=== PATIENT | female | born 1980 | race Caucasian/White ===

== ENCOUNTER 2022-03-06 13:17 | Emergency (ER) | payer OTHER ==
[2022-03-06] MEDS ORDERED: ACETAMINOPHEN INJECTION 100 ML IVPB ONE ×2 (13:20→17:25)
[2022-03-06 13:27] VITALS: BP 143/70; PULSE 62; RESP 16; TEMP 97.7; BMI 26.6
[2022-03-06 13:46] LABS: HEMOGLOBIN 12.3 G/dL (10.7-15.3); MCH 29.7 pg (25.7-33.7); MCHC 35.1 g/dl (32.0-36.0); MEAN CELL VOLUME 84.5 fl (80-96); MEAN PLT VOLUME 8.8 fl (7.5-11.1); PLATELET COUNT 226.3 10^3/uL (134-434); RBC 4.14 10^6/uL (3.60-5.2); RDW 13.5 % (11.6-15.6); WHITE BLOOD COUNT 5.7 10^3/uL (4.0-10.8)
[2022-03-06 13:54] LABS: ALBUMIN 4.1 g/dl (3.4-5.0); BILIRUBIN,TOTAL 0.7 mg/dl (0.2-1); CALCIUM 8.6 mg/dl (8.5-10); CREATININE 0.7 mg/dl (0.55-1.3); TOT PROT 6.5 g/dl (6.4-8.2)
[2022-03-06 14:00] LABS: PLATELET ESTIMATE ADEQUATE
[2022-03-06] MEDS ORDERED: morphine CARPU-JECT 2 MG/1 ML DISP.SYRIN IVPUSH ONE (14:09)
[2022-03-06] MEDS ORDERED: morphine SULFATE 4 MG/ML VIAL ONE (14:13)
[2022-03-06] MEDS ORDERED: KETOROLAC TROMETHAMINE 30 MG/1 ML VIAL ONE (14:26)
[2022-03-06] MEDS ORDERED: KETOROLAC TROMETHAMINE 30 MG/1 ML VIAL IVPUSH ONE (14:26)
[2022-03-06] MEDS ORDERED: ACETAMINOPHEN 1000 MG/100 ML BAG IVPB ONE ×2 (14:36→17:21)
[2022-03-06 14:46] LABS: EPITHELIAL CELLS FEW /hpf
== END 2022-03-06 18:02 | disposition home or self-care (01) ==
LOC: FER 13:17
PROC: 3E0333Z Introduction of Anti-inflammatory into Peripheral Vein, Percutaneous Approach (ICD-10-PCS; principal; 2022-03-06)
PROC: 3E0333Z Introduction of Anti-inflammatory into Peripheral Vein, Percutaneous Approach (ICD-10-PCS; 2022-03-06)
PROC: 3E0333Z Introduction of Anti-inflammatory into Peripheral Vein, Percutaneous Approach (ICD-10-PCS; 2022-03-06)
PROC: 3E033NZ Introduction of Analgesics, Hypnotics, Sedatives into Peripheral Vein, Percutaneous Approach (ICD-10-PCS; 2022-03-06)
DX: R10.30 Lower abdominal pain, unspecified (principal)
CPT/HCPCS: 36415; 74177-TC; 76830-TC; 80053; 81003; 81015; 84703; 85027; 99285-25; Q9967